=== PATIENT | male | born 1940 | race African-American/Black ===

== ENCOUNTER 2016-11-06 10:30 | Inpatient (IN) | payer OTHER, MEDICARE ==
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
--- NOTE | ~2016-11-06 | OR ---
Unit #: [id number] #: [id number] Patient: STEPHENIE FONTENOT [id number] [facility]. [place], [place] [address] [id number] Terrence MR#: [id number] NAME: STEPHENIE FONTENOT ROOM: [facility] Date of Procedure: 11/07/2016 Admission Date: 11/06/2016 Surgeon: Jonnathan Orellana M.D. : 1940 Attending Physician: Elijah Dumas M.D. Primary Care Physician: [facility], OPERATIVE REPORT PROCEDURE PERFORMED Right upper extremity fistulogram. INDICATIONS FOR PROCEDURE This is a 75-year-old gentleman with a long-standing right upper extremity AV fistula, who has been admitted and diagnosed with a right upper extremity DVT. On ultrasound imaging, there was evidence of axillary vein occlusion, and subclavian vein thrombus. The patient has had right upper extremity swelling, although he does not have any reported issues with dialysis access. We were asked by the Nephrology Team to evaluate the patient with a fistulogram, to evaluate the status of his fistula. The Vascular Team talked to the patient about the risks and benefits of a fistulogram. The risks have include, but are not limited to, injury to the blood vessels, bleeding, recurrence of disease, and need for further procedures. The benefit of procedure would be to evaluate the fistula, and treat any potential stenosis or occlusion, to allow for adequate hemodialysis access. The patient expressed understanding and elected to proceed. PREOPERATIVE DIAGNOSES 1. End-stage renal disease. 2. Right upper extremity deep vein thrombosis. POSTOPERATIVE DIAGNOSES 1. End-stage renal disease. 2. Right upper extremity deep vein thrombosis. ESTIMATED BLOOD LOSS 20 mL. FINDINGS 1. Widely patent arterial anastomosis. 2. Widely patent right upper extremity fistula, with stenting of the proximal portion. 3. Widely open axillary vein, subclavian vein, and SVC. 4. 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 DESCRIPTION OF TECHNIQUE After informed consent was obtained, the patient was brought to the procedure room and placed in supine position. The right arm was prepped and draped in standard fashion. At this point, a time-out procedure was performed. Using ultrasound, I accessed the fistula above the antecubital Unit #: [id number] #: [id number] Patient: CORIE,ARCILIOUS fossa where the patient had an excellent thrill. I accessed it with a micro needle, then advanced a micro Glidewire, confirmed my position within the fistula using fluoroscopy. I then exchanged out my micro needle for a 4-Martiniquais micro sheath catheter using Seldinger technique. I then advanced a Bentson wire through the fistula, and exchanged out my 4-Martiniquais sheath for a 5-Martiniquais sheath. Fistulogram pictures demonstrated a widely patent right upper extremity fistulogram. There was previously stented area of the fistula at the proximal portion, the fistula seemed to taper down to its junction to the axillary vein, but it did not appear stenotic. The axillary vein was widely opened, and appeared dilated, no evidence of thrombus or stenosis was seen. The subclavian vein similarly was widely patent with no evidence of stenosis. There did appear to be potential stenosis within the SVC, and I want to take better pictures. I advanced a 4-Martiniquais micro sheath catheter and advanced it up to the axilla, and I obtained additional fistulogram views of the junction of the cephalic vein to the axillary vein, and I confirmed that there was no obvious stenosis. I then advanced the 4-Martiniquais angled glide catheter over the wire and parked it in the innominate vein, and shot another fistulogram, which did not demonstrate the presence of a high-grade SVC stenosis. There was, however, stenosis of the proximal internal jugular vein, at its junction point with the SVC, approximately 95%. At this point, I then want to shoot a retrograde angiogram to evaluate the arterial anastomosis. Holding manual pressure over the proximal aspect of fistula to the hand injection of contrast and it demonstrated a widely patent proximal aspect of the fistula, as well as a widely patent arterial anastomosis with arterial reflux. At this point, given that the patient had a very strong thrill, and no obvious evidence of stenosis or occlusion that I could visualize in the fistulogram, I elected to not make any additional interventions. The 4-0 Prolene was placed in U-stitch fashion around the sheath, the sheath was then pulled, and additional manual pressure was held for 5 minutes for adequate hemostasis. Total contrast used was 35 mL, total fluoro time was 3.9 minutes. At the end of the case, all counts were correct. I was present for the entire duration of the procedure. Dictated by... Og Beltran TD: 11/08/2016 03:33 JOB #: [id number] OPERATIVE REPORT Page 1 of 1 X X PROCEDURE OPERATIVE NOTE
--- NOTE | ~2016-11-06 | US140 ---
[facility] A Service of [facility] & [facility] RADIOLOGY TEXT RESULTS PATIENT: STEPHENIE FONTENOT LOCATION: [facility] 567-01 : 40 UNIT #: [id number] AGE: [address]: Elijah Dumas MD SEX: M ORDER DR: [id number] [facility] [address] [place], [place] [address] [id number] E MR#: [id number] Acc #: [id number] NAME: STEPHENIE FONTENOT : 1940 SEX: M STUDY DATE/TIME: 11/06/2016 9:54 UNIT: NIRAV ROOM: STUDY DESCRIPTION: UE Veins Unilat or Ltd Stdy Attending Physician: Antoinette Bentley Pa-C Ordering Physician: Antoinette Bentley Pa-C Primary Care Physician: [facility] MEDICAL IMAGING REPORT This report is preliminary unless electronic signature is present EXAM Right lower extremity venous ultrasound, 11/06/2016. HISTORY Right hand swelling for a few weeks. History of PE, 2002. Takes anticoagulants. FINDINGS Real-time ultrasonography of the right upper extremity venous structures performed. Vargas-scale, color Doppler, Doppler pulse-wave interrogation utilized. Comparison 06/16/2016. Right internal jugular vein is patent with normal compressibility and normal color Doppler interrogation. There is partial thrombosis of the right subclavian vein. Contains echogenic material. There is decreased compressibility. There is partial luminal patency with some flow seen in the vein. The axillary vein appears thrombosed. Contains echogenic material with absence of flow. The brachial veins contain echogenic material. They are noncompressible. Absence of flow on color Doppler interrogation. The patient has a right upper extremity hemodialysis fistula. This appears to be between the distal brachial artery and cephalic vein. The fistula is patent but there appears to be relatively extensive mural thrombus along its anterior aspect. The fistula has been recently used for hemodialysis. The outflow of the brachiocephalic hemodialysis fistula is not well defined on this examination and could best be further evaluated with standard venography. The basilic vein appears thrombosed in the upper arm. It is patent in the forearm. Subcutaneous edema noted in the forearm. Radial and ulnar veins are patent. IMPRESSION 1. Abnormal examination with findings discussed with Antoinette Bentley at time of this dictation. The study is positive for deep venous thrombosis. There is thrombosis of the right subclavian vein. Small STS. [facility] A Service of [facility] & [facility] RADIOLOGY TEXT RESULTS PATIENT: STEPHENIE FONTENOT LOCATION: [facility] 567-01 : 40 UNIT #: [id number] AGE: [address]: Elijah Dumas MD SEX: M ORDER DR: residual lumen remains. There is thrombosis of the axillary vein. No significant flow seen in the axillary vein. Thrombosis of the brachial veins. No significant flow visualized. 2. There is superficial venous thrombosis in the basilic vein in the upper arm which shows absence of flow, internal echogenic material and noncompressibility. 3. Patient has a right upper extremity hemodialysis arteriovenous fistula, which appears to be between brachial artery and cephalic vein. The fistula is patent. There is what appears to be extensive mural thrombus along its anterior aspect. The fistula outflow is not well defined on this examination and could best be further evaluated with standard venography. 4. Subcutaneous edema in the forearm. Dictated by... Nnamdi Daily M.D. THIS IS AN ELECTRONICALLY VERIFIED REPORT Nnamdi Daily M.D. at 11/07/2016 4:50 PM KETURAH/[place] TD: 11/06/2016 12:55 JOB #: [id number] MEDICAL IMAGING REPORT Page 1 of 1 COPY
--- NOTE | ~2016-11-06 | CO ---
Unit #: [id number] #: [id number] Patient: STEPHENIE FONTENOT [id number] [facility]. [place], [place] [address] [id number] I MR#: [id number] NAME: STEPHENIE FONTENOT ROOM: 56 Age: 75 Sex: M Admission Date: 11/06/2016 : 1940 Attending Physician: Elijah Dumas M.D. [facility] CONSULTATION REPORT REASON FOR CONSULTATION The patient with end-stage renal disease, admitted with increased swelling in his right access arm. HISTORY OF PRESENTING ILLNESS This patient is a 75-year-old gentleman with history of hypertension; hyperlipidemia; history of end-stage renal disease, has been on dialysis for more than 3 years. The patient had AV fistula in his right arm that he has experienced sudden increase in size and swelling of his fistula arm. The patient still have bruit and thrill on the access arm. PAST MEDICAL HISTORY Significant for history of lung cancer, coronary artery disease, history of COPD, hypertension, and hyperlipidemia. MEDICATIONS Include folic acid 1 mg daily, senna one tablet daily, Centrum 1 tablet daily, Lipitor 40 mg daily, Toprol-XL 100 mg b.i.d., aspirin 81 mg daily, Plavix 75 mg daily, and amlodipine 10 mg daily. REVIEW OF SYSTEMS As per history of presenting illness. PHYSICAL EXAMINATION GENERAL: The patient is in no acute distress. VITAL SIGNS: Temperature 100, pulse 105, blood pressure 162/109. HEENT: Unremarkable. Mild pallor. No oral exudate. NECK: Supple. There is no JVD. No bruit. No thyromegaly. No cervical lymphadenopathy. CHEST: Occasional wheezing. CARDIOVASCULAR: Regular rate and rhythm. No rub, murmur, or gallop. ABDOMEN: Soft, nontender, nondistended. Positive bowel sounds. EXTREMITIES: Has no peripheral edema. Right upper arm has increased edema of the right upper arm. Positive pulses. Positive bruit and thrill. DIAGNOSTIC STUDIES LABORATORY RESULTS: The patient with lab data of sodium 138, potassium 4.2, chloride 105, bicarb 22, BUN 25, creatinine 6.4, glucose 77. Calcium 9.3, magnesium 1.7, phosphorus 4.1. ASSESSMENT End-stage renal disease. Continue hemodialysis. We will dialyze after fistulogram in a.m. Swelling in arm could be due to proximal venous Unit #: [id number] #: [id number] Patient: CORIE,ARCILIOUS stenosis. I will consult Vascular Surgery to get a fistulogram in a.m. and dialysis . The patient may need a stenting or angioplasty of the Dictated by... Og Zuleta/bradley TD: 11/07/2016 01:41 JOB #: [id number] CONSULTATION REPORT Page 1 of 1 X Dario Gage MD X CONSULTATION REPORT
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
--- NOTE | ~2016-11-06 | EKG ---
PATIENT: STEPHENIE FONTENOT UNIT #: [id number] Ventricular Rate: 98 BPM Atrial Rate: 98 BPM P-R Interval: 142 ms QRS Duration: 84 ms Q-T Interval: 344 ms QTC Calculation(Bezet): 439 ms P [place]: 54 degrees Calculated R [place]: 49 degrees Calculated T [place]: -13 degrees Diagnosis Line: Sinus rhythm with occasional Premature ventricular Diagnosis Line: complexes Diagnosis Line: Voltage criteria for left ventricular hypertrophy Diagnosis Line: T wave abnormality, consider lateral ischemia Diagnosis Line: Abnormal ECG Diagnosis Line: When compared with ECG of 27-APR-2016 12:48, Diagnosis Line: Premature ventricular complexes are now Present Diagnosis Line: Premature supraventricular complexes are no longer Diagnosis Line: Present Diagnosis Line: Nonspecific T wave abnormality now evident in Diagnosis Line: Inferior leads Diagnosis Line: QT has shortened Diagnosis Line: Confirmed by MYAH MORELAND MD ([id number]) on 11/07/2016 Diagnosis Line: 7:01:03 PM INTERPRETING MD: MERLY SÁNCHEZ
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
--- NOTE | ~2016-11-06 | DS ---
Unit #: [id number] #: [id number] Patient: STEPHENIE FONTENOT [id number] [place], [place] [address] [id number] I MR#: [id number] NAME: STEPHENIE FONTENOT ROOM: [facility] Age: 75 Sex: M Admission Date: 11/06/2016 : 1940 Discharge Date: 11/08/2016 Attending Physician: Elijah Dumas M.D. [facility] DIS[facility]GE SUMMARY FINAL DIAGNOSES 1. Right upper extremity deep venous thrombosis. 2. Endstage renal disease. 3. Stage IV bronchogenic carcinoma. 4. Non-small cell lung cancer. SECONDARY DIAGNOSES 1. Coronary artery disease 2. Endstage renal disease on dialysis. 3. Hypertension. 4. Hyperlipidemia. 5. Peripheral vascular disease. CONSULTS 1. Nephrology, Dr. De Guzman and Dr. Gage. 2. Hematology, Dr. Johnson. 3. Vascular surgery, Dr. Jonnathan Orellana. PROCEDURES He had right upper extremity fistulogram HOSPITAL COURSE A 75-year-old -[place] male with a history of non-small cell lung cancer presents after a fall with right upper extremity swelling. Doppler revealed extensive DVT. He was started on anticoagulation. Hematology was consulted. Patient also has stage IV non-small cell lung cancer. He was being followed by Dr. London while he was hospitalized. He was fully anticoagulated while he was hospitalized however he did have a fistulogram done which showed that the fistula was patent and not thrombosed. Per Dr. London's recommendation he discussed with patient and his son at length about the diagnosis and prognosis with no good choice for anticoagulation. The plan was for him to continue with Plavix for now and aspirin for now and outpatient follow up with Oncology and Hematology and his PCP. He is evaluated and stable for discharge and will be discharged in stable condition. DISCHARGE MEDICATIONS Medications on discharge include: 1. Heparin 1000 units with hemodialysis. 2. Amlodipine 10 mg p.o. daily. 3. Colace 100 mg p.o. daily. 4. Senokot S (sennosides) one tablet p.o. daily. 5. Lipitor 40 mg p.o. daily. Unit #: [id number] #: [id number] Patient: STEPHENIE FONTENOT 6. Centrum one tablet p.o. daily. 7. Aspirin 81 mg p.o. daily. 8. Tramadol 100 mg p.o. b.i.d. p.r.n. for pain. 9. Plavix 75 mg p.o. daily. 10. Folic acid 1 mg p.o. daily. 11. RenaPlex 1 tablet p.o. daily. FOLLOWUP He is to schedule followup with: 1. His PCP in the next three to five days. 2. Dr. London in about one to two weeks. 3. Nephrology for hemodialysis as previously scheduled. CONDITION ON DISCHARGE He will be discharged in stable condition. DISCHARGE PLAN The patient's discharge plan was discussed with patient and his relatives all present today. Time spent coordinating discharge is about 35 minutes. Dictated by... Og Tena/anne TD: 11/08/2016 20:55 JOB #: [id number] DISCHARGE SUMMARY Page 1 of 1 X Elijah Dumas MD X DISCHARGE SUMMARY
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
--- NOTE | ~2016-11-06 | CR58 ---
[facility] A Service of [facility] RADIOLOGY TEXT RESULTS PATIENT: STEPHENIE FONTENOT LOCATION: [facility] [id number] : 40 UNIT #: [id number] AGE: [address]: Elijah Dumas MD SEX: M ORDER DR: [id number] [facility] [address] [place], [place] [address] [id number] MR#: [id number] Acc #: [id number] NAME: STEPHENIE FONTENOT : 1940 SEX: M STUDY DATE/TIME: 11/06/2016 9:32 UNIT: [facility] ROOM: STUDY DESCRIPTION: CR Cervical Spine 2 or 3 Views Attending Physician: Antoinette Bentley Pa-C Ordering Physician: Antoinette Bentley Pa-C Primary Care Physician: [facility] MEDICAL IMAGING REPORT This report is preliminary unless electronic signature is present EXAM Cervical spine series, 11/06/2016 HISTORY Chest pain. Pain. Cough, congestion, short of air. Fell today. Neck pain. Lung cancer. Heart attack. FINDINGS AP, lateral and swimmer's views of the cervical spine are presented with an open mouth odontoid view. Alignment appears normal in visualized extent. C7-T1 relationship not visualized adequately on lateral or swimmer's view for clearance in the context of trauma. Repeat lateral view with voluntary shoulder depression and/or repeat swimmer's view recommended for full clearance. If C7-T1 relationship cannot be defined on plain radiographs, consider CT evaluation. There is questionable cortical irregularity at the superior endplate of the C3 vertebral body on the lateral view. I favor that this is a projectional artifact but superior endplate fracture is not excluded in the context of trauma. This is best further evaluated with CT. No other potential fractures are seen. The intervertebral disc spaces show moderate narrowing C6-C7. Prevertebral soft tissues normal. Mild generalized facet degenerative changes. Paraspinal calcifications most consistent with carotid atherosclerotic arterial calcifications. C1-C2 relationship normal. Odontoid process intact. Dictated by... Nnamdi Daily M.D. THIS IS AN ELECTRONICALLY VERIFIED REPORT Nnamdi Daily M.D. at 11/07/2016 4:50 PM [facility] A Service of [facility] RADIOLOGY TEXT RESULTS PATIENT: STEPHENIE FONTENOT LOCATION: [place] [address] : [birth year] UNIT #: [id number] AGE: [address]: Elijah Dumas MD SEX: M ORDER DR: TD: 11/06/2016 11:47 JOB #: [id number] MEDICAL IMAGING REPORT Page 1 of 1 COPY
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
[~2016-11-06 10:30] MED LIST: ALAVERT10 M2 PO; ALBUTEROL17 GM INH; ANTACID650 MG PO; ASPIRIN EC81 M1 PO; ATORVASTATIN CA20 MG PO; AZITHROMYCIN250 MG PO; CARDURA8 MG PO; CARVEDILOL3.125 MG PO; CLINDAMYCIN HC300 MG PO; COLACE PO; COREG12.5 MG PO; DOC-Q-LACE100 MG PO; ECOTRIN81 M1 PO; FOLIC ACID PO; FOLIC ACID1 MG PO; HYDRALAZINE HCL50 MG PO; HYDROCODON-ACE1 EAC7 PO; IMDUR-ER30 M3 PO; LEVAQUIN PO; LEVAQUIN750 MG PO; LIPITOR PO; METOPROLOL TAR25 MG PO; MUCINEX D ER T1 EAC1 PO; MUCINEX D ER T1 EACH PO; MULTI-VITAMIN1 TAB PO; NEPHROCAPS1 CAP PO; NORVASC PO; NORVASC10 MG PO; OMEPRAZOLE20 M1 PO; PREDNISONE PO; PRILOSEC PO; PRILOSEC40 MG PO; SENNA CONCENTR8.6 MG PO; SENNA PLUS TABL1 TAB PO; SENNA8.6 M2 PO; SODIUM BICARBO325 MG PO; SYMBICORT INH; TOPROL XL PO; TRAMADOL HCL50 M1 PO; TRAMADOL HCL50 M2 PO; TYLENOL325 M1 PO; VANTIN200 MG PO; VITAMIN D31000 UNIT PO; ZOCOR20 MG PO; [UNRECOGNIZED DRUG - OTHER]; [UNRECOGNIZED DRUG - OTHER] PO
[2016-11-06 11:07] LABS: BASOPHIL% 0.7 % (0-2.5); EOSINOPHIL% 0.8 % (0.0-7.0); HEMATOCRIT 32.2 % (38.0-50.0); HEMOGLOBIN 9.9 gm/dL (13.0-16.0); LYMPHOCYTE# 0.6 X10e3 (1.0-3.5); LYMPHOCYTE% 11.2 % (17.0-45.0); MEAN CELL VOLUME 87.2 FL (83-96); MEAN CORPUSCULAR HEMOGLOBIN 26.8 PG (28-34); MEAN CORPUSCULAR HGB CONC 30.8 g/dL (30-36); MONOCYTE% 18.2 % (3.0-12.0); NEUTROPHIL% 69.1 % (40-75); PLATELET COUNT 126 X10e3 (140-420); RED CELL DISTRIBUTION WIDTH 18.1 % (11.0-15.5); WHITE BLOOD COUNT 5.7 X10e3 (4.0-10.5)
[2016-11-06 11:10] LABS: DIFF IND NO
[2016-11-06 11:11] LABS: POC - TROPONIN <0.05 ng/mL (<=0.05)
[2016-11-06 11:27] LABS: PARTIAL THROMBOPLASTIN TIME 26.5 SECONDS (23.5-31.3); PROTHROMBIN TIME (PATIENT) 10.7 SECONDS (9.6-11.5)
[2016-11-06 11:35] LABS: BILIRUBIN,TOTAL 0.8 mg/dL (0.2-2.0); BUN/CREATININE RATIO 3.9; CALCIUM SERUM 9.3 mg/dL (8.4-10.2); CREATININE SERUM 6.4 mg/dL (0.6-1.4); POTASSIUM 4.2 mmol/L (3.5-5.1); PROTEIN TOTAL SERUM 6.7 g/dL (6.0-8.3)
[2016-11-06] MEDS ORDERED: FOLIC ACID1 MG PO (13:11)
[2016-11-06] MEDS ORDERED: SENNA CONCENTR8.6 MG PO (13:12)
[2016-11-06] MEDS ORDERED: CENTRUM PO (13:13)
[2016-11-06] MEDS ORDERED: LIPITOR40 MG PO (13:14)
[2016-11-06] MEDS ORDERED: TRAMADOL HCL50 M2 PO (13:26)
[2016-11-06] MEDS ORDERED: DOCUSATE SODIU100 M1 PO (13:27)
[2016-11-06] MEDS ORDERED: RENAPLEX PO (13:28)
[2016-11-06] MEDS ORDERED: CLOPIDOGREL75 MG PO (13:32)
[2016-11-06] MEDS ORDERED: ASPIRIN81 MG PO (13:32)
[2016-11-06] MEDS ORDERED: AMLODIPINE BESY10 MG PO (13:33)
[2016-11-06 17:59] LABS: CK TOTAL 42 IU/L (36-174)
[2016-11-06 23:32] LABS: CK TOTAL 45 IU/L (36-174)
[2016-11-07 06:48] LABS: ALBUMIN SERUM 2.9 g/dL (3.5-5.0); BILIRUBIN,TOTAL 0.8 mg/dL (0.2-2.0); BUN/CREATININE RATIO 4.08; CALCIUM SERUM 9.2 mg/dL (8.4-10.2); CREATININE SERUM 7.1 mg/dL (0.6-1.4); GLOM FILT RATE Estimated 7.9 mL/min (>60); POTASSIUM 4.2 mmol/L (3.5-5.1); PROTEIN TOTAL SERUM 6.5 g/dL (6.0-8.3)
[2016-11-07 07:02] LABS: CK TOTAL 40 IU/L (36-174)
[2016-11-07 08:05] LABS: HEMATOCRIT 33.1 % (38.0-50.0); HEMOGLOBIN 10.2 gm/dL (13.0-16.0); MEAN CELL VOLUME 86.5 FL (83-96); MEAN CORPUSCULAR HEMOGLOBIN 26.6 PG (28-34); MEAN CORPUSCULAR HGB CONC 30.7 g/dL (30-36); MEAN PLATELET VOLUME 9.3 FL (6.5-11.5); RED BLOOD COUNT 3.82 X10e (3.90-5.60); RED CELL DISTRIBUTION WIDTH 18.2 % (11.0-15.5); WHITE BLOOD COUNT 4.7 X10e3 (4.0-10.5)
== END 2016-11-08 20:40 | disposition home or self-care (01) | DRG 299 ==
LOC: CED 10:30 → CEDOF 13:35 → C5C 17:28
PROVIDERS: Family Medicine; Physician Assistant Medical
PROC: B513YZZ Fluoroscopy of Right Jugular Veins using Other Contrast (ICD-10-PCS; principal; 2016-11-07)
PROC: B51MYZZ Fluoroscopy of Right Upper Extremity Veins using Other Contrast (ICD-10-PCS; 2016-11-07)
PROC: B516YZZ Fluoroscopy of Right Subclavian Vein using Other Contrast (ICD-10-PCS; 2016-11-07)
PROC: B518YZZ Fluoroscopy of Superior Vena Cava using Other Contrast (ICD-10-PCS; 2016-11-07)
DX: I82.621 Acute embolism and thrombosis of deep veins of right upper extremity (principal); N18.6 End stage renal disease; I12.0 Hypertensive chronic kidney disease with stage 5 chronic kidney disease or end stage renal disease; C34.91 Malignant neoplasm of unspecified part of right bronchus or lung; I25.10 Atherosclerotic heart disease of native coronary artery without angina pectoris; Z99.2 Dependence on renal dialysis; E78.5 Hyperlipidemia, unspecified; I73.9 Peripheral vascular disease, unspecified; W19.XXXA Unspecified fall, initial encounter; K21.9 Gastro-esophageal reflux disease without esophagitis; Z95.5 Presence of coronary angioplasty implant and graft; I70.219 Atherosclerosis of native arteries of extremities with intermittent claudication, unspecified extremity; Z79.82 Long term (current) use of aspirin
CPT/HCPCS: 36415; 71020; 72040; 73130; 80053; 82550; 82553; 84484; 85025; 85027; 85610; 85730; 93005; 93971; 96372; 99285; C1769; J1644; J1650; J2250; J3010; Q9967

== ENCOUNTER 2017-03-05 17:59 | Inpatient (IN) | payer OTHER, MEDICARE ==
[~2017-03-05] VITALS: Ht 180.3 cm; Wt 57.2 kg
--- NOTE | ~2017-03-05 | CO ---
Unit #: [id number] #: [id number] Patient: STEPHENIE FONTENOT [id number] [place] [address] [facility]. [place], [place] [address] [id number] I MR#: [id number] NAME: STEPHENIE FONTENOT ROOM: 315 Age: 76 Sex: M Admission Date: 03/06/2017 : 1940 Attending Physician: Odessa Rob M.D. Primary Care Physician: [facility] Requesting Physician: Consuelo Antonio M.D. Consultation Date: 03/06/2017 CONSULTATION REPORT NEPHROLOGY CONSULTATION REASON FOR CONSULTATION End-stage renal disease. Thank you very much for this consultation. HISTORY OF PRESENT ILLNESS This patient is a 76-year-old male, with a history of end-stage renal disease on Thursday, , and Thursday hemodialysis, who also has a history of lung cancer and is currently being followed by Hospice as an outpatient. He presented to the emergency room with shortness of breath and fever after having missed dialysis. His T-max has been 100.5 degrees Fahrenheit. He is seen on dialysis this morning and denies any chest pain, nausea, vomiting, or diarrhea. No other complaints. PAST MEDICAL HISTORY Significant for end-stage renal disease on Thursday, Thursday, and Thursday hemodialysis. Lung cancer currently under Hospice care. Coronary artery disease. Hypertension. Hyperlipidemia. Peripheral vascular disease. Gastroesophageal reflux disease. ALLERGIES No known drug allergies. HOME MEDICATIONS As per the medication reconciliation. FAMILY HISTORY Noncontributory. SOCIAL HISTORY He lives alone, positive for tobacco, no alcohol. REVIEW OF SYSTEMS A twelve point review of systems is negative except as per history of present illness. PHYSICAL EXAMINATION VITAL SIGNS: His blood pressure is 168/85, heart rate 94, respirations 16, T-max of 100.5 Fahrenheit. GENERAL: He is awake, alert, and in no acute distress. HEENT: Head: Normocephalic and atraumatic. ENT: Pupils equally round Unit #: [id number] #: [id number] Patient: STEPHENIE FONTENOT and reactive to light. Oropharynx is clear. NECK: Supple. No JVD. LUNGS: Clear bilaterally with no wheezes, rales, or crackles. HEART: Regular rate and rhythm, no murmurs, gallops, or rubs. ABDOMEN: Soft, nontender, with positive bowel sounds. EXTREMITIES: He has positive edema especially in his access arm. NEURO: Cranial nerves II through XII are intact to testing. Gait was not assessed. DIAGNOSTIC STUDIES LABORATORY: Sodium 138, potassium 5.2, chloride 102, bicarb 19, BUN 68, creatinine 8.7, glucose 61, calcium 8.9, white count 15.3, hemoglobin 13.4, platelets 139. Blood and sputum cultures are pending. IMAGING: Chest x-ray shows an enlarging right lung mass. ASSESSMENT/PLAN 1. End-stage renal disease, plan dialysis today for his missed treatment then resume Thursday, , and Thursday treatment tomorrow. 2. Pulmonary edema, will treat with dialysis as tolerated. 3. Fever, exact cause is unknown, possible urinary tract infection. Chest x-ray did not show an infiltrate, cultures are pending, he is on antibiotics for primary. 4. Lung cancer. 5. Hypertension. PLAN Dialysis today and then resume Thursday, , and Thursday schedule tomorrow, continue with antibiotics and workup fever primary. The patient is currently under Hospice care as an outpatient; however, he has continued to wish to persist with dialysis treatments at the present time, will continue to discuss options of care with the patient. Thank you for this consultation. Dictated by... Paulie De Guzman M.D. BRANT/eliana TD: 03/07/2017 08:35 JOB #: [id number] Unit #: [id number] #: [id number] Patient: STEPHENIE FONTENOT CONSULTATION REPORT Page 1 of 1 X Pauile De Guzman MD X CONSULTATION REPORT
--- NOTE | ~2017-03-05 | CR72 ---
[facility] A Service of [facility] RADIOLOGY TEXT RESULTS PATIENT: STEPHENIE FONTENOT LOCATION: C3A 315-01 : 40 UNIT #: [id number] AGE: [address]: Odessa Rob MD SEX: M ORDER DR: [id number] [facility] [address] [facility]. [place], [place] [address] [id number] MR#: [id number] #: [id number] NAME: STEPHENIE FONTENOT : 1940 SEX: M STUDY DATE/TIME: 03/05/2017 19:41 UNIT: [facility] ROOM: STUDY DESCRIPTION: CR Chest Single View Portable Attending Physician: Mohsen Herndon M.D. Ordering Physician: Mohsen Herndon M.D. Primary Care Physician: [facility], [facility] MEDICAL IMAGING REPORT This report is preliminary unless electronic signature is present EXAM Chest portable 03/05/2017 1941 hours CLINICAL HISTORY 76-year-old with fever, cough and shortness of air today. COMPARISON 11/07/2016 FINDINGS Portable upright chest demonstrates normal heart size and stable tortuous aorta. There is bilateral interstitial change in the mid and lower lungs likely an element of edema. There is a nodule or mass in the right midlung measuring 3.5 x 3.2 cm, certainly more conspicuous than on 11/07/2016 and appearing larger than on the CT of 11/06/2016 where it measured 2.6 cm x 1.6 cm in the supra segment of the right lower lobe. This is concerning for carcinoma. It appears the patient did have a CT biopsy of this lesion on 05/02/2016. Correlation with those biopsy results as recommended. A followup chest CT is recommended as this does appear increased and is concerning for malignancy regardless of previous biopsy result. There is no pneumothorax. IMPRESSION 1. There is underlying emphysematous change with interstitial change in both mid and lower lungs new from the prior study concerning for acute edema. 2. There is a 3.5 cm x 3.2 cm mass in the right midlung increased in size from CT 10/31/2015 where it measured 2.5 cm. This was previously biopsied 05/02/2016. Correlation with those biopsy results is recommended. Regardless of the results a followup chest CT is warranted as this has increased in size and remains suspicious for carcinoma. [facility] A Service of [facility] RADIOLOGY TEXT RESULTS PATIENT: STEPHENIE FONTENOT LOCATION: A 315-01 : 40 UNIT #: [id number] AGE: [address]: Odessa Rob MD SEX: M ORDER DR: Dictated by... Ashley Little M.D. THIS IS AN ELECTRONICALLY VERIFIED REPORT Ashley Ltitle M.D. at 03/06/2017 9:28 AM YOVANI/fahad TD: 03/05/2017 23:59 JOB #: [id number] MEDICAL IMAGING REPORT Page 1 of 1 COPY
--- NOTE | ~2017-03-05 | EKG ---
PATIENT: STEPHENIE FONTENOT UNIT #: [id number] Ventricular Rate: 95 BPM Atrial Rate: 95 BPM P-R Interval: 152 ms QRS Duration: 78 ms Q-T Interval: 378 ms QTC Calculation(Bezet): 475 ms P [place]: 82 degrees Calculated R [place]: 49 degrees Calculated T [place]: 83 degrees Diagnosis Line: Sinus rhythm with Premature atrial complexes Diagnosis Line: Minimal voltage criteria for LVH, may be normal Diagnosis Line: variant Diagnosis Line: Nonspecific ST and T wave abnormality Diagnosis Line: Borderline ECG Diagnosis Line: When compared with ECG of 06-NOV-2016 09:15, Diagnosis Line: Premature ventricular complexes are no longer Diagnosis Line: Present Diagnosis Line: Premature atrial complexes are now Present Diagnosis Line: Nonspecific T wave abnormality, improved in Diagnosis Line: Inferior leads Diagnosis Line: T wave inversion no longer evident in Anterior Diagnosis Line: leads Diagnosis Line: Confirmed by MYAH MORELAND MD ([id number]) on 03/07/2017 Diagnosis Line: 8:25:03 AM INTERPRETING MD: MERLY SÁNCHEZ
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
--- NOTE | ~2017-03-05 | DS ---
Unit #: [id number] #: [id number] Patient: STEPHENIE FONTENOT [id number] [address] [address] [id number] I MR#: [id number] NAME: STEPHENIE FONTENOT ROOM: 315 Age: 76 Sex: M Admission Date: 03/06/2017 : 1940 Discharge Date: 03/09/2017 Attending Physician: Odessa Rob M.D. Primary Care Physician: On License Of [facility] DISCHARGE SUMMARY DISCHARGE DIAGNOSES 1. Stage 4 mtm-bhyzp-neki lung cancer, under Hospice care. 2. Endstage renal disease on hemodialysis. The patient could not tolerate dialysis. He has hypertension and tachycardia. Also, he missed dialysis before coming to the hospital. 3. Likely urinary tract infection. 4. Hypertension, uncontrolled. 5. Fluid overload from missing dialysis. 6. Early thrush. 7. Coronary artery disease, status post stent, ejection fraction 45%. Recent echocardiogram shows ejection fraction 20%-25%. This was in February 2016. 8. Congestive heart failure. 9. Peripheral vascular disease. 10. Metabolic encephalopathy. 11. Atrial arrhythmia. 12. Right upper extremity swelling with recent history of DVT. No anticoagulation decided by hematology in November. 13. Hyperlipidemia. 14. Peripheral vascular disease, status post bilateral lower extremity stents. 15. Gastroesophageal reflux disease. CONSULTANTS Dr. Paulie Barragan. Dr. Friend. The patient received hemodialysis during the hospitalization course. DIAGNOSTIC DATA LABORATORY: Sodium 137, potassium 4.9, creatinine 7.9, white blood cell count 11.2, hemoglobin 12.1, platelets 153, TSH 1.42. Blood cultures negative. Urine culture not done because the patient did not produce any urine. He has endstage renal disease. CARDIOVASCULAR: EKG shows atrial arrhythmia. ALLERGIES No known drug allergies. DISCHARGE MEDICATIONS 1. Metoprolol 50 mg p.o. b.i.d. 2. Colace 100 mg daily. Unit #: [id number] #: [id number] Patient: STEPHENIE FONTENOT 3. Senna 1 tablet p.o. daily. 4. Lipitor 40 mg daily. 5. Multivitamin 1 tablet daily. 6. Aspirin 81 mg daily. 7. Ultram 100 mg p.o. b.i.d. 8. Plavix 75 mg daily. 9. Folic acid 1 mg daily. HOSPITAL COURSE The patient is a 76-year-old admitted because of fever, fluid overload and weakness. Stage 4 lung cancer and endstage renal disease and multiple comorbidities. The patient could not also tolerate dialysis. He missed a few before coming with fluid overload and chronic systolic heart failure. The patient was seen by cariology and nephrology. They both agree for Hospice. He was on Hospice before coming to the hospital. I talked in detail with his daughter, who is his rmgmr-dv-nyxxywui for Hospice. The patient was discharged home with Hospice after dialysis today. Sepsis with urinary tract infection: Could not get urinalysis because the patient is aneuric according to the nurse. He did receive IV cefepime. No antibiotics today. Currently the patient is afebrile. White blood cell count is normal. Irregular heart rate, likely from arrhythmias. The patient was started on Metoprolol. Sepsis with urinary tract infection: Present on admission. Currently resolved. Secondary to toxic metabolic encephalopathy. Hemodialysis currently. The patient is alert. End-stage renal disease. Currently the patient will have hemodialysis today. Later, the patient's daughter will decide about starting hemodialysis at home. Stage 4 lung cancer: The patient is being followed with Hospice. The patient will discharge after dialysis under Hospice care. The family and consultants agree for Hospice. Discharge time taken was 45 minutes. Dictated by... Og Newman TD: 03/09/2017 15:23 JOB #: [id number] CC: [facility] Unit #: [id number] #: [id number] Patient: STEPHENIE FONTENOT DISCHARGE SUMMARY Page 1 of 1 X Odessa Rob MD X DISCHARGE SUMMARY
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
--- NOTE | ~2017-03-05 | EKG ---
PATIENT: STEPHENIE FONTENOT UNIT #: [id number] Ventricular Rate: 72 BPM Atrial Rate: 72 BPM P-R Interval: 162 ms QRS Duration: 90 ms Q-T Interval: 432 ms QTC Calculation(Bezet): 473 ms P [place]: 82 degrees Calculated R [place]: 58 degrees Calculated T [place]: 90 degrees Diagnosis Line: Sinus rhythm with Premature atrial complexes Diagnosis Line: Otherwise normal ECG Diagnosis Line: When compared with ECG of 05-MAR-2017 18:54, Diagnosis Line: (unconfirmed) Diagnosis Line: Nonspecific T wave abnormality, improved in Diagnosis Line: Lateral leads Diagnosis Line: Confirmed by MYAH MORELAND MD ([id number]) on 03/07/2017 Diagnosis Line: 8:26:45 AM INTERPRETING MD: MERLY SÁNCHEZ
--- NOTE | ~2017-03-05 | A ---
[facility] Nutrition Therapy DATE: 03/06/17 Patient: STEPHENIE FONTENOT Physician: ENMANUEL Address: [address] [facility] Room/Bed: [address] [place] [address], Zip: [place] [address] Admit Date: 03/06/17 Date of : 40 Height: 5 11 Weight: 126 57.2 NUTRITIONAL ASSESSMENT: REASON: Low BMI Admitting dx: 76 y/o male admitted with SOB, fever, weakness, fluid overload PMH: ESRD on HD Thu//Thu, COPD, HTN, HLD, GERD, CAD, PAD, lung cancer (dx 2016, s/p chemo, later elected no treatment) Anthropometrics: Ht: 71", Wt: 57.2 kg (126 lbs), BMI: 17 (underweight) Labs: K+ 5.2, glucose 61, BUN 68, creat 8.7, Phos 5.9 (03/05), GFR 6.2 Meds: Zofran prn, folic acid, therapeutic formula, bowel regimen I/O & Bowel function: BM 03/05 Skin Integrity: No significant issues, no edema Estimated Nutrition Needs: Increased due to underweight status, recent weight loss, cancer Assessment: Chart reviewed, events noted. See admitting dx and PMH as stated above. RD assessing due to underweight status. RD previously assessed on 03/27/16; note reviewed. Patient weighed 140 lbs at that time. Family member in room [facility] patient weighed 136 lbs at his oncology appointment in November of this year, currently weighs 126 lbs. Suspect overall weight loss of 14 lbs in approx. 16 months with 10 lbs of that loss being recently in the past 4 months (7.3% BW loss in 4 months; significant loss) due to poor oral intake and lack of appetite. During previous RD assessment pt reported early satiety and was on 6 small meals diet with Nepro shakes ordered BID. Of note, the patient has lung cancer which he received chemo for last year, and later elected no treatment. He missed his dialysis recently which resulted in this admission, is scheduled to have dialysis tomorrow. notes ?dementia in chart. He is currently on room air, on mechanical soft/2g sodium diet. Family member in room states patient only ate ~25% of breakfast this morning and 0% of lunch as of yet. He drank about 25% of a vanilla Nepro at lunch. Family reports he likes vanilla and butter pecan Nepro- will order TID and write to D/C low sodium restriction for now due to poor oral intake. Based on his intake, weight loss and brief physical assessment he qualifies for moderate PCM. See RD recs below, will follow hospital course. Dx: Malnutrition related to chronic illness/cancer/advancing age AEB ~7.5% BW loss in ~3 months, poor oral intake < 75% energy needs for > 1 month, BMI 17, mild-moderate muscle/fat loss. [facility] Nutrition Therapy DATE: 03/06/17 Patient: STEPHENIE CORIE Physician: ENMANUEL Address: [address] [place] [address] Room/Bed: [address] [place] [address], Zip: [place] [address] Admit Date: 03/06/17 Date of : 40 Height: 5 11 Weight: 126 57.2 Intervention: D/C low sodium restriction, add Nepro shakes TID Monitoring, Evaluation and Goals: 1. PO intake > 50% of meals/supps. 2. Gradual weight gain towards a healthy BMI range. 3. Improvement in labs (BUN, creatinine, K+, Phos, glucose) Monitor: per protocol, criteria to determine if above goals met Recommendations: 1. Please discontinue 2g sodium restriction due to poor oral intake to liberalize menu choices. Keep mechanical soft texture. Appreciate staff/family to encourage PO intake and assist with ordering and feeding meals. If oral intake improves may consider adding 6 small meals to optimize intake due to previous reports of early satiety. 2. Please order vanilla or butter pecan Nepro shakes TID to increase oral kcal/protein intake due to poor intake and weight loss, to promote weight gain. Fluids per MD. 3. Please weigh q 3 days for monitoring purposes as the patient is clinically underweight. 4. Continue MVI. 5. Based on assessment above the patient qualifies for moderate protein calorie malnutrition. See physical malnutrition assessment. RD will follow Moderate nutrition risk Respectfully, Debra Harrison, RD, LD [facility] cc: client file
--- NOTE | ~2017-03-05 | MAL ---
[facility] Nutrition Therapy DATE: 03/06/17 Patient: STEPHENIE FONTENOT Physician: ENMANUEL Address: [address] [place] [address] Room/Bed: [address] [place] [address], Zip: [place] [address] Admit Date: 03/06/17 Date of : 40 Height: 5 11 Weight: 126 57.2 PHYSICAL MALNUTRITION ASSESSMENT Energy Intake, Chronic Illness Moderately reduced: <75% needs for >/=1 month Weight Loss, Chronic Illness Moderate: 7.5% past 3 months Physical Findings Body Fat and Muscle Mass Moderate: (suggested) some loss of subqutaneous fat and/or muscle mass Physical Findings Functional Capacity Severe: (obvious) bedridden or otherwise significantly reduced functional capacity Malnutrition Survey Results: Malnutrition identified Malnutrition Etiology Summary: Chronic illness moderate Malnutrition Survey Comment: See assessment for full details and recommendations. Respectfully, Debra Harrison RD, LATA [facility] cc: client file
--- NOTE | ~2017-03-05 | EKG ---
PATIENT: STEPHENIE FONTENOT UNIT #: [id number] Ventricular Rate: 99 BPM Atrial Rate: 99 BPM P-R Interval: 146 ms QRS Duration: 90 ms Q-T Interval: 350 ms QTC Calculation(Bezet): 449 ms P [place]: 69 degrees Calculated R [place]: 47 degrees Calculated T [place]: 105 degrees Diagnosis Line: Sinus rhythm with Premature supraventricular Diagnosis Line: complexes with occasional Premature ventricular Diagnosis Line: complexes Diagnosis Line: Moderate voltage criteria for LVH, may be normal Diagnosis Line: variant Diagnosis Line: Nonspecific T wave abnormality Diagnosis Line: Abnormal ECG Diagnosis Line: When compared with ECG of 06-MAR-2017 01:14, Diagnosis Line: Premature ventricular complexes are now Present Diagnosis Line: Confirmed by MYAH MORELAND MD ([id number]) on 03/10/2017 Diagnosis Line: 10:41:54 PM INTERPRETING MD: MERLY SÁNCHEZ
[~2017-03-05 17:59] MED LIST changes: +AMLODIPINE BESY10 MG PO; +ASPIRIN81 MG PO; +CENTRUM PO; +CLOPIDOGREL75 MG PO; +DOCUSATE SODIU100 M1 PO; +LIPITOR40 MG PO; +RENAPLEX PO
[2017-03-05 20:16] LABS: BASOPHIL% 0.2 % (0-2.5); EOSINOPHIL# 0.1 X10e3 (0-0.7); EOSINOPHIL% 0.4 % (0.0-7.0); HEMATOCRIT 38.8 % (38.0-50.0); LYMPHOCYTE# 0.6 X10e3 (1.0-3.5); LYMPHOCYTE% 4.1 % (17.0-45.0); MEAN CELL VOLUME 83.8 FL (83-96); MEAN CORPUSCULAR HEMOGLOBIN 25.8 PG (28-34); MEAN CORPUSCULAR HGB CONC 30.8 g/dL (30-36); MEAN PLATELET VOLUME 8.5 FL (6.5-11.5); MONOCYTE# 2.1 X10e3 (0-1.0); MONOCYTE% 15.5 % (3.0-12.0); NEUTROPHIL# 10.8 X10e3 (1.5-7.1); NEUTROPHIL% 79.8 % (40-75); PLATELET COUNT 153 X10e3 (140-420); RED BLOOD COUNT 4.63 X10e (3.90-5.60); RED CELL DISTRIBUTION WIDTH 19.4 % (11.0-15.5); WHITE BLOOD COUNT 13.6 X10e3 (4.0-10.5)
[2017-03-05 20:18] LABS: DIFF IND NO
[2017-03-05 20:26] LABS: INR 1.1; PARTIAL THROMBOPLASTIN TIME 31.3 SECONDS (23.5-31.3); PROTHROMBIN TIME (PATIENT) 11.7 SECONDS (10.0-11.7)
[2017-03-05 20:34] LABS: ALBUMIN SERUM 2.8 g/dL (3.5-5.0); BILIRUBIN, DIRECT 0.2 mg/dL (0.0-0.2); BILIRUBIN,INDIRECT 0.6 mg/dL (0.0-0.9); BILIRUBIN,TOTAL 0.8 mg/dL (0.2-2.0); BUN/CREATININE RATIO 7.5; GLOM FILT RATE Estimated 6.8 mL/min (>60); PHOSPHOROUS 5.9 mg/dL (2.5-4.6); PROTEIN TOTAL SERUM 6.8 g/dL (6.0-8.3)
[2017-03-05 21:07] LABS: POC - CKMB 2.8 ng/mL (0.0-7.9); POC - TROPONIN <0.05 ng/mL (<=0.05)
[2017-03-05 23:33] LABS: POC - CKMB 2.5 ng/mL (0.0-7.9); POC - TROPONIN <0.05 ng/mL (<=0.05)
[2017-03-06 08:38] LABS: HEMATOCRIT 42.9 % (38.0-50.0); HEMOGLOBIN 13.4 gm/dL (13.0-16.0); MEAN CELL VOLUME 82.8 FL (83-96); MEAN CORPUSCULAR HEMOGLOBIN 25.9 PG (28-34); MEAN CORPUSCULAR HGB CONC 31.3 g/dL (30-36); MEAN PLATELET VOLUME 8.5 FL (6.5-11.5); RED BLOOD COUNT 5.18 X10e (3.90-5.60); RED CELL DISTRIBUTION WIDTH 19.5 % (11.0-15.5); WHITE BLOOD COUNT 15.3 X10e3 (4.0-10.5)
[2017-03-06 09:03] LABS: BUN/CREATININE RATIO 7.81; CALCIUM SERUM 8.9 mg/dL (8.4-10.2); CREATININE SERUM 8.7 mg/dL (0.6-1.4); GLOM FILT RATE Estimated 6.2 mL/min (>60); POTASSIUM 5.2 mmol/L (3.5-5.1)
[2017-03-07 07:17] LABS: HEMATOCRIT 40.7 % (38.0-50.0); HEMOGLOBIN 12.9 gm/dL (13.0-16.0); MEAN CELL VOLUME 83.3 FL (83-96); MEAN CORPUSCULAR HEMOGLOBIN 26.5 PG (28-34); MEAN CORPUSCULAR HGB CONC 31.8 g/dL (30-36); MEAN PLATELET VOLUME 8.5 FL (6.5-11.5); RED BLOOD COUNT 4.89 X10e (3.90-5.60); RED CELL DISTRIBUTION WIDTH 19.9 % (11.0-15.5); WHITE BLOOD COUNT 11.9 X10e3 (4.0-10.5)
[2017-03-07 22:41] LABS: ALBUMIN SERUM 2.6 g/dL (3.5-5.0); BILIRUBIN,TOTAL 0.4 mg/dL (0.2-2.0); BUN/CREATININE RATIO 6.4; CALCIUM SERUM 8.5 mg/dL (8.4-10.2); CREATININE SERUM 6.4 mg/dL (0.6-1.4); GLOM FILT RATE Estimated 8.9 mL/min (>60); POTASSIUM 4.1 mmol/L (3.5-5.1); PROTEIN TOTAL SERUM 6.8 g/dL (6.0-8.3)
[2017-03-08 07:22] LABS: HEMATOCRIT 39.6 % (38.0-50.0); HEMOGLOBIN 12.7 gm/dL (13.0-16.0); MEAN CELL VOLUME 82.2 FL (83-96); MEAN CORPUSCULAR HEMOGLOBIN 26.4 PG (28-34); MEAN CORPUSCULAR HGB CONC 32.1 g/dL (30-36); RED BLOOD COUNT 4.82 X10e (3.90-5.60)
[2017-03-08 07:56] LABS: BUN/CREATININE RATIO 6.71; CALCIUM SERUM 8.9 mg/dL (8.4-10.2); CREATININE SERUM 6.7 mg/dL (0.6-1.4); GLOM FILT RATE Estimated 8.5 mL/min (>60); POTASSIUM 4.2 mmol/L (3.5-5.1)
[2017-03-09 06:04] LABS: HEMATOCRIT 38.1 % (38.0-50.0); HEMOGLOBIN 12.1 gm/dL (13.0-16.0); MEAN CELL VOLUME 82.3 FL (83-96); MEAN CORPUSCULAR HEMOGLOBIN 26.1 PG (28-34); MEAN CORPUSCULAR HGB CONC 31.7 g/dL (30-36); MEAN PLATELET VOLUME 9.1 FL (6.5-11.5); RED BLOOD COUNT 4.62 X10e (3.90-5.60); RED CELL DISTRIBUTION WIDTH 19.7 % (11.0-15.5); WHITE BLOOD COUNT 11.3 X10e3 (4.0-10.5)
[2017-03-09 06:07] LABS: BUN/CREATININE RATIO 7.34; CALCIUM SERUM 8.8 mg/dL (8.4-10.2); CREATININE SERUM 7.9 mg/dL (0.6-1.4); GLOM FILT RATE Estimated 6.9 mL/min (>60); POTASSIUM 4.9 mmol/L (3.5-5.1)
[2017-03-10] MEDS ORDERED: LOPRESSOR PO (12:55)
== END 2017-03-10 23:59 | disposition home health service (06) | DRG 871 ==
LOC: CED 17:59 → C3A PCU 03-06 02:10 → CED 03-06 02:10 → CEDOF 03-06 02:10 → C3A PCU 03-06 02:56 → CEDOF 03-06 02:56 → C3A PCU 03-06 06:49
PROVIDERS: Emergency Medicine; Internal Medicine; Internal Medicine Nephrology
PROC: 5A1D60Z (ICD-10-PCS; principal; 2017-03-06)
DX: A41.9 Sepsis, unspecified organism (principal); G93.41 Metabolic encephalopathy; J96.00 Acute respiratory failure, unspecified whether with hypoxia or hypercapnia; I47.2 Ventricular tachycardia; I13.2 Hypertensive heart and chronic kidney disease with heart failure and with stage 5 chronic kidney disease, or end stage renal disease; J81.1 Chronic pulmonary edema; N18.6 End stage renal disease; C34.90 Malignant neoplasm of unspecified part of unspecified bronchus or lung; I50.22 Chronic systolic (congestive) heart failure; B37.0 Candidal stomatitis; I25.10 Atherosclerotic heart disease of native coronary artery without angina pectoris; I73.9 Peripheral vascular disease, unspecified; K21.9 Gastro-esophageal reflux disease without esophagitis; E78.5 Hyperlipidemia, unspecified; F17.210 Nicotine dependence, cigarettes, uncomplicated; Z95.5 Presence of coronary angioplasty implant and graft; Z86.718 Personal history of other venous thrombosis and embolism; Z99.2 Dependence on renal dialysis
CPT/HCPCS: 36415; 51701; 71010; 80048; 80053; 80076; 82150; 82553; 83605; 83690; 83735; 84100; 84443; 84484; 85025; 85027; 85610; 85730; 87040; 87340; 93005; 94760; 99285; J0360; J0692; J3370